=== PATIENT | female | born 1970 | race Caucasian/White ===

== ENCOUNTER → 2024-12-15 | Outpatient (CLI) | payer OTHER, SELFPAY ==
--- NOTE | 2024-12-15 08:24 | CT_ITS ---
PROCEDURE: SINUS/FACIAL BONE 12/15/2024 REASON FOR EXAM: CHRONIC SINUSITIS TECHNIQUE: SINUS/FACIAL BONE Coronal and Sagittal reconstruction series were provided. One or more dose reduction techniques were used (e.g., Automated exposure control, adjustment of the mA and/or kV according to patient size, use of iterative reconstruction technique). RADIATION DOSE SUMMARY: CTDlvol: 33.06 mGy DLP: 809.06 mGycm COMPARISON: None FINDINGS: Frontal: Frontal sinuses clear. Ethmoid: Clear. Sphenoid: Clear Maxillary: Clear Turbinates: Hypertrophy of the inferior turbinates bilaterally. Nasal Septum: Deviated towards the left side of the midline. Mastoids/Middle Ears: Clear CT/Sinus/Facial Bone IMPRESSION: Sinuses are clear. Nasal septal deviation towards the left side of the midline. Hypertrophy of the inferior turbinates bilaterally. Reading Location: [id number]
== END | disposition home or self-care (01) ==
PROVIDERS: Referring Provider Otolaryngology; Visit Provider Otolaryngology
DX: J32.8 Other chronic sinusitis (principal)
CPT/HCPCS: 70486

== ENCOUNTER → 2025-02-09 | Outpatient (CLI) | payer OTHER, SELFPAY | END | disposition home or self-care (01) | LOC: LABSPEC 15:25 | PROVIDERS: Referring Provider Otolaryngology; Visit Provider Otolaryngology | DX: J32.9 Chronic sinusitis, unspecified (principal) | CPT/HCPCS: 87070; 87077; 87205 ==